=== PATIENT | female | born 2000 | race Caucasian/White ===

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

== ENCOUNTER 2024-04-22 15:50 | Emergency (ER) | payer OTHER ==
[~2024-04-22] VITALS: Ht 170.2 cm; Wt 83.8 kg
[~2024-04-22 15:50] MED LIST changes: +BACTRIM DS TAB1 EACH PO
[2024-04-22] MEDS ORDERED: SPRINTEC1 EACH PO (16:16)
[2024-04-22] MEDS ORDERED: METOPROLOL SUCC50 MG PO (16:16)
[2024-04-22] MEDS ORDERED: ZEPBOUND7.5 MG/0.5 SQ (16:16)
[2024-04-22] MEDS ORDERED: SERTRALINE HCL100 MG PO (16:16)
[2024-04-22] MEDS ORDERED: TRAZODONE HCL50 MG PO (16:17)
[2024-04-22 17:40] VITALS: BP 120/82
== END 2024-04-22 17:40 | disposition home or self-care (01) ==
LOC: ED 15:50
DX: S61.210A Laceration without foreign body of right index finger without damage to nail, initial encounter (principal); W26.0XXA Contact with knife, initial encounter; Y93.G1 Activity, food preparation and clean up; I10 Essential (primary) hypertension; Z79.899 Other long term (current) drug therapy
CPT/HCPCS: 12001; 99282-25

== ENCOUNTER 2024-04-24 09:19 | Emergency (ER) | payer OTHER ==
[~2024-04-24] VITALS: Ht 170.2 cm; Wt 84.9 kg
[~2024-04-24 09:19] MED LIST changes: +METOPROLOL SUCC50 MG PO; +SERTRALINE HCL100 MG PO; +SPRINTEC1 EACH PO; +TRAZODONE HCL50 MG PO; +ZEPBOUND7.5 MG/0.5 SQ
--- OUTSIDE RECORDS SUMMARY | 2024-04-24 09:24 | XMS ---
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 EFarzana VISIT COUNT (12 MO.) 2 [facility] TOTAL 2 NOTE: Visits indicate total known visits. ED/UCC VISIT TRACKING (12 MO.) 04/24/2024 09:20 [facility] TYPE: Emergency COMPLAINT: - WOUND CHECK 04/22/2024 15:50 [facility] TYPE: Emergency COMPLAINT: - LACERATION INPATIENT VISIT TRACKING (12 MO.) No inpatient visits to display in this time frame [id number]
[2024-04-24] MEDS ORDERED: DIPHTH,PERTUSS(ACELL),TET VAC 0.5 ML SYRINGE IM ONE (10:00)
[2024-04-24] MEDS ORDERED: ACETAMINOPHEN 500 MG TAB PO ONE (10:00)
[2024-04-24] MEDS ORDERED: NAPROSYN500 MG PO (10:05)
[2024-04-24] MEDS ORDERED: CEPHALEXIN500 M1 PO (10:05)
[2024-04-24] MEDS ORDERED: CEPHALEXIN MONOHYDRATE 500 MG CAP PO ONE (10:15)
[2024-04-24 10:43] VITALS: BP 116/68
== END 2024-04-24 10:44 | disposition home or self-care (01) ==
LOC: ED 09:19
DX: T81.49XA Infection following a procedure, other surgical site, initial encounter (principal); Y83.9 Surgical procedure, unspecified as the cause of abnormal reaction of the patient, or of later complication, without mention of misadventure at the time of the procedure; I10 Essential (primary) hypertension; F32.A Depression, unspecified; Z79.899 Other long term (current) drug therapy
CPT/HCPCS: 29125; 73140; 99283-25; A9270

== ENCOUNTER 2024-04-25 07:02 | Emergency (ER) | payer OTHER ==
[~2024-04-25] VITALS: Ht 170.2 cm; Wt 85.5 kg
[~2024-04-25 07:02] MED LIST changes: +CEPHALEXIN500 M1 PO; +NAPROSYN500 MG PO
--- OUTSIDE RECORDS SUMMARY | 2024-04-25 07:09 | XMS ---
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 EFarzana VISIT COUNT (12 MO.) 3 [facility] TOTAL 3 NOTE: Visits indicate total known visits. ED/UCC VISIT TRACKING (12 MO.) 04/25/2024 07:03 [facility] TYPE: Emergency COMPLAINT: - WOUND CHECK 04/24/2024 09:20 [facility] TYPE: Emergency COMPLAINT: - WOUND CHECK 04/22/2024 15:50 [facility] TYPE: Emergency COMPLAINT: - LACERATION INPATIENT VISIT TRACKING (12 MO.) No inpatient visits to display in this time frame [id number]
[2024-04-25 07:56] VITALS: BP 115/57
== END 2024-04-25 07:56 | disposition home or self-care (01) ==
LOC: ED 07:02
DX: L03.011 Cellulitis of right finger (principal); I10 Essential (primary) hypertension; Z79.899 Other long term (current) drug therapy; Z79.1 Long term (current) use of non-steroidal anti-inflammatories (NSAID)
CPT/HCPCS: 99282

== ENCOUNTER 2024-12-17 22:23 | Emergency (ER) | payer OTHER ==
[~2024-12-17] VITALS: Ht 160 cm; Wt 74.0 kg
[2024-12-17] MEDS ORDERED: PROCHLORPERAZINE EDISYLATE 10 MG/2 ML VIAL IV ONE (22:30)
[2024-12-17] MEDS ORDERED: DIPHENOXYLATE/ATROPINE 1 EA TAB PO ONE (22:30)
[2024-12-17] MEDS ORDERED: LACTATED RINGER'S 1,000 ML IV ONE (22:30)
[2024-12-17 22:38] LABS: BASOPHILS 0.1 % (0-2); EOSINOPHILS 1.1 % (0-6); HEMATOCRIT 45.6 % (35.0-50.0); HEMOGLOBIN 15.3 g/dL (12.0-18.0); LYMPHOCYTES 6.6 % (24-44); MCH 30.6 (27-36); MCHC 33.6 g/dl (30-36); MCV 91.2 fl (81-99); MONOCYTES 2.8 % (0-12); NEUTROPHILS 89.4 % (39-80); PLATELET COUNT 256 K/uL (140-440); RDW 12.8 (10.5-15.0)
[2024-12-17 22:52] LABS: ALBUMIN 3.8 g/dL (3.4-5.0); ALBUMIN/GLOBULIN RATIO 1.03 (1.1-2.4); ANION GAP 14.2 (7-21); BUN/CREATININE RATIO 17.7 (6.0-28.6); CALCIUM 9.2 mg/dL (8.5-10.1); CREATININE, SERUM 0.96 mg/dL (0.55-1.02); MAGNESIUM 1.7 mg/dL (1.8-2.4); POTASSIUM 3.2 mmol/L (3.5-5.1); PROTEIN, TOTAL 7.5 g/dL (6.4-8.2)
[2024-12-17] MEDS ORDERED: POTASSIUM CHLORIDE 10 MEQ TABCR PO ONE (23:15)
[2024-12-17] MEDS ORDERED: DIVALPROEX SODIUM 500 MG TABEC PO ONE (23:15)
[2024-12-17] MEDS ORDERED: MAGNESIUM OXIDE 400 MG TABLET PO ONE (23:15)
[2024-12-17] MEDS ORDERED: PROMETHEGAN25 MG PR (23:55)
[2024-12-17] MEDS ORDERED: LOMOTIL TABLET1 EACH PO (23:55)
[2024-12-17] MEDS ORDERED: ONDANSETRON ODT8 MG PO (23:55)
[2024-12-18] MEDS ORDERED: PROMETHAZINE HCL 25 MG SUPP. HOME.PACK PR ONE (00:15)
[2024-12-18] MEDS ORDERED: ONDANSETRON 4 MG HOME.PACK SL ONE (00:15)
[2024-12-18 00:17] VITALS: BP 119/71
== END 2024-12-18 00:21 | disposition home or self-care (01) ==
LOC: ED 22:23
PROVIDERS: Family Medicine
DX: K52.9 Noninfective gastroenteritis and colitis, unspecified (principal); I10 Essential (primary) hypertension; Z79.899 Other long term (current) drug therapy
CPT/HCPCS: 36415; 80053; 83735; 84703; 85025; 96361; 96374; 99284-25; A9270; J0780; J7121